=== PATIENT | male | born 1960 | race Caucasian/White ===

== ENCOUNTER 2024-06-08 11:00 | Outpatient (RCR) | payer BC, OTHER, SELFPAY | END 2024-06-18 17:15 | disposition home or self-care (01) | PROVIDERS: PCP Family Medicine; Visit Provider Orthopaedic Surgery | DX: M17.0 Bilateral primary osteoarthritis of knee (principal); M25.561 Pain in right knee; M25.562 Pain in left knee; M25.661 Stiffness of right knee, not elsewhere classified; M25.662 Stiffness of left knee, not elsewhere classified; Z51.89 Encounter for other specified aftercare | CPT/HCPCS: 97110; 97116; 97140; 97161; 97164 ==

== ENCOUNTER 2024-10-28 15:30 | Outpatient (RCR) | payer BC, SELFPAY | END 2024-12-16 12:40 | disposition home or self-care (01) | PROVIDERS: PCP Family Medicine; Visit Provider Physician Assistant | DX: Z47.1 Aftercare following joint replacement surgery (principal); Z96.653 Presence of artificial knee joint, bilateral; M25.561 Pain in right knee; Z51.89 Encounter for other specified aftercare | CPT/HCPCS: 97033; 97112; 97161 ==